=== PATIENT | male | born 1960 | race Hispanic/Latino ===

== ENCOUNTER 2022-05-13 10:36 | Emergency (ER) | payer OTHER ==
[~2022-05-13] VITALS: Ht 170.2 cm; Wt 80.0 kg
[2022-05-13] VITALS (9 sets, daily range): BP systolic 158–189; BP diastolic 88–145
[2022-05-13] MEDS ORDERED: METFORMIN500 M2 PO (11:00)
[2022-05-13 11:45] LABS: HEMATOCRIT 44.8 % (39.0-50.0); HEMOGLOBIN 15.3 g/dl (14.0-18.0); IMMATURE GRANULOCYTES 0.5 % (0.0-5.0); MEAN CELL VOLUME 84.5 fL CALC (80.0-100.0); MEAN CORPUSCULAR HGB 28.9 pG CALC (26.0-32.0); MEAN CORPUSCULAR HGB CONC 34.2 g/dL CAL (32.0-36.0); NEUT# 5.36 thou/uL (1.82-7.42); RED BLOOD COUNT 5.3 mill/uL (4.70-6.10); RED CELL DISTRI WIDTH 11.9 % (11.5-15.5)
[2022-05-13 12:31] LABS: ALBUMIN 4.5 g/dL (3.2-5.0); ALKALINE PHOSPHATASE 132 u/l (38-126); ANION GAP 16 (6-22 (CALC)); BILIRUBIN, TOTAL 0.3 mg/dL (0.0-1.4); BUN 11 mg/dL (9-20); BUN/CREATININE RATIO 16 (12-20 (CALC)); CARBON DIOXIDE 26 mmol/l (22-30); CHLORIDE 99 mmol/l (95-108); CREATININE 0.7 mg/dL (0.7-1.3); GFR FOR AFR.AMER. > 60 ML/MIN (>=60 (CALC)); GFR OTHER RACES > 60 ML/MIN (>=60 (CALC)); POTASSIUM 4.3 mmol/l (3.5-5.1); SGOT/AST 27 u/l (17-59); SODIUM 137 mmol/l (137-146); TOTAL PROTEIN 8.2 g/dL (6.3-8.2)
[2022-05-13] MEDS ORDERED: CEPHALEXIN500 M1 PO ×2 (13:45→15:07)
[2022-05-13] MEDS ORDERED: BACTRIM DS1 TAB PO ×2 (13:45→15:07)
== END 2022-05-13 14:51 | disposition home or self-care (01) | DRG 603 ==
LOC: ED 10:36
PROVIDERS: Family Medicine
DX: L03.221 Cellulitis of neck (principal); B95.61 Methicillin susceptible Staphylococcus aureus infection as the cause of diseases classified elsewhere; B96.89 Other specified bacterial agents as the cause of diseases classified elsewhere; E11.9 Type 2 diabetes mellitus without complications; I10 Essential (primary) hypertension
CPT/HCPCS: Q9967